=== PATIENT | male | born 1965 | race Caucasian/White ===

== ENCOUNTER 2017-06-13 02:32 | Emergency (ER) | payer SELFPAY ==
[2017-06-13 02:43] VITALS: BP 150/114; PULSE 106; TEMP 98.7; BMI 31.9
--- NOTE | 2017-06-13 02:58 | PDOC ---
History of Present Illness - General Chief Complaint: Back Pain Stated Complaint: BACK PAIN Time Seen by Provider: 06/13/17 02:58 History Source: Patient Exam Limitations: No Limitations - History of Present Illness Initial Comments: 06/13/17 03:15 This is a 51-year-old male who has a long history of chronic back pain who comes in complaining of acute exacerbation of his chronic back pain. Patient said he recently moved here from [place] and has no medication for his acute exacerbation of his chronic back pain secondary to an L4-L5 fracture Patient said he usually takes Soma and 5 mg of Percocet. But has not needed the medication use the medication since he moved several months ago Patient otherwise said the pain radiates down his right leg to approximately the knee. 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 Patient is otherwise healthy. PAST MEDICAL HISTORY: no significant history PAST SURGICAL HISTORY: no significant history FAMILY HISTORY: no pertinant history SOCIAL HISTORY: Pt lives with family and is employed. MEDICATIONS: reviewed ALLERGIES: As per nursing notes Review of Systems General: No fevers or chills, no weakness, no weight loss HEENT: No change in vision. No sore throat,. No ear pain CardioVascular: No chest pain or shortness of breath Respiratory:No cough, or wheezing. Gastrointestinal: no nausea, vomitting, diarrhea or constipation, No rectal bleeding Genitourinary: No dysuria, hematuria, or frequency Musculoskeletal: Back pain as per history of present illness Neurologic: No headache, vertigo, dizziness or loss of consciousness Psychiatric: nor depression Skin: No rashes or easy bruising Endocrine: no increased thirst or abnormal weight change Allergic: no skin or latex allergy All other systems reviewed and normal GENERAL: The patient is awake, alert, and fully oriented, in no acute distress. HEAD: Normal with no signs of trauma. EYES: Pupils equal, round and reactive to light, extraocular movements intact, sclera anicteric, conjunctiva clear. EXTREMITIES: Normal range of motion, no edema. BACK: There is tenderness and palpation over the lower lumbar spine with paraspinal spasm. Neurovascular distal is intact and straight leg raising is negative. NEUROLOGICAL: Normal speech, normal gait. grossly intact PSYCH: Normal mood, normal affect. SKIN: Warm, Dry, normal turgor, no rashes or lesions noted. Assessment and plan: This is a 51-year-old male who comes in complaining of low back pain acute exacerbation of chronic pain. Patient is driving himself home so was unable to give him any medications immediately. I offered to give patient medication immediately got some relief, drive home however there was no one so prescriptions were sent to the pharmacy. Patient received a prescription for 20 tablets of Percocet 5 mg and 20 tablets of Soma 350 mg. Past History - Past Medical History Allergies/Adverse Reactions: Allergies Allergy/AdvReac Type Severity Reaction Status Date / Time No Known Allergies Allergy Unverified 06/13/17 02:33 Home Medications: Ambulatory Orders Carisoprodol [Soma] 350 mg PO QID #28 tablet MDD 4 06/13/17 Ibuprofen 800 mg PO ONCE 06/13/17 Oxycodone HCl/Acetaminophen [Percocet 5-325 mg Tablet] 1 tab PO Q4H #20 tablet MDD 8 06/13/17 COPD: No Other medical history: HERNIATED DISC, L4 L5 FX - Suicide/Smoking/Psychosocial Hx Smoking History: Current every day smoker Number of Cigarettes Smoked Daily: 15 Information on smoking cessation initiated: Yes 'Breaking Loose' booklet given: 06/13/17 *Physical Exam - Vital Signs Last Vital Signs Temp Pulse Resp BP Pulse Ox 98.7 F 106 H 18 150/114 99 06/13/17 02:36 06/13/17 02:36 06/13/17 02:36 06/13/17 02:36 06/13/17 02:36 *DC/Admit/Observation/Transfer Diagnosis at time of Disposition: Low back pain Qualifiers: Chronicity: acute Back pain laterality: midline Sciatica presence: with sciatica Sciatica laterality: sciatica of right side Qualified Code(s): M54.41 - Lumbago with sciatica, right side - Discharge Dispostion Disposition: HOME Condition at time of disposition: Stable - Prescriptions Prescriptions: Carisoprodol [Soma] 350 mg PO QID #28 tablet MDD 4 Oxycodone HCl/Acetaminophen [Percocet 5-325 mg Tablet] 1 tab PO Q4H #20 tablet MDD 8 - Referrals Referrals: Sukhwinder Rebollar MD [Primary Care Provider] - - Patient Instructions Additional Instructions: For the pain you can continue to take the ibuprofen. In addition take Percocet one tablet every 4 hours if needed For spasm take Soma one tablet 4 times a day. Return to the emergency department immediately with ANY new, persistent or worsening symptoms. Continue any medications as previously prescribed by your physician. You should follow up with your primary doctor as soon as possible regarding today's emergency department visit. . Please make sure your doctor reviews the results of your emergency evaluation. Thank you for coming to the Emergency Department today for your care. It was a pleasure to see you today. Please note that your evaluation is INCOMPLETE until you follow-up with your doctor. - Post Discharge Activity
== END 2017-06-13 03:24 | disposition home or self-care (01) ==
LOC: SUPCPDRO 02:32 → FER 02:32
DX: M54.41 Lumbago with sciatica, right side (principal); F17.210 Nicotine dependence, cigarettes, uncomplicated
CPT/HCPCS: 99282-25

== ENCOUNTER 2017-07-30 12:38 | Emergency (ER) | payer OTHER ==
[2017-07-30 12:42] VITALS: TEMP 98.9; BMI 31.6
--- NOTE | 2017-07-30 13:08 | PDOC ---
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 No fevers chills. No URI symptoms, sore throat, cough, chest pain, shortness of breath, abdominal pain, nausea, vomiting, diarrhea. No visual or focal neurologic symptoms. Past medical history: Musculoskeletal pain of the low back, disc disease. No surgery. Hepatitis C. Social/family history: Works as a construction project administrator, heavy smoker most of his life, 2 packs per day, now down to 15 cigarettes a day and attempting to quit. No family history of coronary artery disease, but father had 2 valves replaced in his 50s. Mother with diabetes Physical exam: Alert and oriented well-developed well-nourished no acute distress cheerful and cooperative Afebrile, vital signs normal PERRLA 4 mm, fundi benign, ENT clear Neck supple without bruit mass or nodes Chest clear CV regular without murmur rub or gallop Abdomen benign Neurological intact. Including full strength bilaterally and no focal sensory or motor deficits. LS spine: Loss of normal lumbar lordosis, mild paravertebral spasm bilaterally, no deformity or tenderness of the vertebral bodies. No erythema, warmth, or other sign of inflammation. Straight leg raising negative. No neurological deficits Impression: Chronic low back strain, no subacute. Plan: Refill medications and follow-up with Back Specialist. Fully ambulatory and in no significant pain or distress upon discharge. Past History - Past Medical History Allergies/Adverse Reactions: Allergies Allergy/AdvReac Type Severity Reaction Status Date / Time No Known Allergies Allergy Verified 07/30/17 12:38 Home Medications: Ambulatory Orders Ibuprofen 800 mg PO ONCE 06/13/17 Carisoprodol [Soma] 350 mg PO QID PRN #20 tablet MDD 4 07/30/17 Oxycodone HCl/Acetaminophen [Percocet 10-325 mg Tablet] 1 each PO Q6H PRN #20 tablet MDD 4 07/30/17 COPD: No Other medical history: LOW BACK PAIN - Suicide/Smoking/Psychosocial Hx Smoking History: Current every day smoker Number of Cigarettes Smoked Daily: 15 Information on smoking cessation initiated: Yes 'Breaking Loose' booklet given: 07/30/17 Hx Alcohol Use: Yes Drug/Substance Use Hx: No Substance Use Type: Alcohol *Physical Exam - Vital Signs Last Vital Signs Temp Pulse Resp BP Pulse Ox 98.9 F 108 H 18 145/101 95 07/30/17 12:38 07/30/17 12:38 07/30/17 12:38 07/30/17 12:38 07/30/17 12:38 *DC/Admit/Observation/Transfer Diagnosis at time of Disposition: Low back pain Qualifiers: Chronicity: acute Back pain laterality: bilateral Sciatica presence: without sciatica Qualified Code(s): M54.5 - Low back pain - Discharge Dispostion Disposition: HOME Condition at time of disposition: Stable Admit: No - Prescriptions Prescriptions: Carisoprodol [Soma] 350 mg PO QID PRN #20 tablet MDD 4 PRN Reason: spasm Oxycodone HCl/Acetaminophen [Percocet 10-325 mg Tablet] 1 each PO Q6H PRN #20 tablet MDD 4 PRN Reason: Severe Pain - Referrals Referrals: Tang Dubois MD [Staff Physician] - - Patient Instructions Printed Discharge Instructions: DI for Low Back Pain - Post Discharge Activity
[2017-07-30 13:20] VITALS: BP 150/94; PULSE 98
== END 2017-07-30 13:24 | disposition home or self-care (01) ==
LOC: FER 12:38
DX: M54.5 Low back pain (principal); G89.29 Other chronic pain; B19.20 Unspecified viral hepatitis C without hepatic coma; F17.210 Nicotine dependence, cigarettes, uncomplicated
CPT/HCPCS: 99282-25

== ENCOUNTER 2017-08-18 16:00 | Emergency (ER) | payer OTHER ==
[2017-08-18 16:15] VITALS: BMI 29.0
--- NOTE | 2017-08-18 16:24 | PDOC ---
History of Present Illness - General History Source: Patient (The patient is a 52 year old male, brought on by brother, who arrives to the emergency department restless, screaming, and stating he does not know. Combined with brothers history, patient has been feeling weak and has not been eating or drinking at baseline. Patient reports he recently returned from [place] several months ago to help his brother take care of his 9 year old twin daughters. Patients history is limited due to agitation. ), Family Exam Limitations: Other <Tessa Adams - Last Filed: 08/18/17 19:22> - General History Source: Family (Family informed us later that he had history of drug addiction, arrests while in [place] and currently he prepaid $2000 at a local hotel.) Exam Limitations: Clinical Condition - History of Present Illness Timing/Duration: unsure <Olivia Parker - Last Filed: 08/20/17 14:21> - General Chief Complaint: Psychiatric Stated Complaint: I DONT KNOW WHY I AM HERE Time Seen by Provider: 08/18/17 16:23 Past History - Past Medical History COPD: No Other medical history: Chronic back pain, Hepatitis C <Tessa Adams - Last Filed: 08/18/17 19:22> - Past Medical History COPD: No - Suicide/Smoking/Psychosocial Hx Smoking History: Current every day smoker Number of Cigarettes Smoked Daily: 20 Information on smoking cessation initiated: Yes 'Breaking Loose' booklet given: 08/18/17 Hx Alcohol Use: Yes Drug/Substance Use Hx: Yes Substance Use Type: Alcohol <Olivia Parker - Last Filed: 08/20/17 14:21> - Past Medical History Allergies/Adverse Reactions: Allergies Allergy/AdvReac Type Severity Reaction Status Date / Time No Known Allergies Allergy Verified 07/30/17 12:38 Home Medications: Ambulatory Orders Ibuprofen 800 mg PO ONCE 06/13/17 Carisoprodol [Soma] 350 mg PO QID PRN #20 tablet MDD 4 07/30/17 Oxycodone HCl/Acetaminophen [Percocet 10-325 mg Tablet] 1 each PO Q6H PRN #20 tablet MDD 4 07/30/17 Review of Systems - Review of Systems Able to Perform ROS?: Yes (Limited due to pt cond. ) Constitutional: Yes: Loss of Appetite, Weakness. No: Chills, Fever Respiratory: No: Cough, Shortness of Breath Cardiac (ROS): No: Chest Pain, Irregular Heart Rate, Chest Tightness ABD/GI: No: Constipated, Diarrhea, Nausea, Vomiting : No: Dysuria, Frequency, Hematuria, Urgency Neurological: Yes: Weakness. No: Headache Psychiatric: Yes: Other All Other Systems: Reviewed and Negative <Tessa Adams - Last Filed: 08/18/17 19:22> - Review of Systems Musculoskeletal: Yes: Other (leg pains) Integumentary: Yes: Other (Skin dryness on his feet) Psychiatric: Yes: Other (Restlesness) All Other Systems: Reviewed and Negative <Olivia Parker S - Last Filed: 08/20/17 14:21> *Physical Exam - Vital Signs Last Vital Signs Temp Pulse Resp BP Pulse Ox 0/0 08/18/17 16:01 - Physical Exam General Appearance: Yes: Nourished, Disheveled, Mild Distress, Alcohol on Breath (Intoxicated.). No: Appropriately Dressed (Poor hygiene) HEENT: positive: EOMI, MAGNOLIA, Other (Dry mucous membranes.). negative: Normal Voice (Screaming.) Neck: positive: Supple. negative: Tender Respiratory/Chest: positive: Lungs Clear, Normal Breath Sounds Cardiovascular: positive: Regular Rhythm, Regular Rate, S1, S2 Gastrointestinal/Abdominal: positive: Normal Bowel Sounds, Soft. negative: Tender, Organomegaly, Guarding, Rebound Integumentary: positive: Normal Color, Dry, Warm Neurologic: positive: medical technician II-XII NML intact, Fully Oriented, Alert. negative: Normal Mood/Affect <Tessa Adams - Last Filed: 08/18/17 19:22> - Vital Signs Last Vital Signs Temp Pulse Resp BP Pulse Ox 0/0 08/18/17 16:01 - Physical Exam Musculoskeletal: positive: Other (Able to ambulate freely without difficulty mainly when advised about follow up) Neurologic: positive: Fully Oriented (agitated and refusing to undersatnding he will need follow up care in an apropriate facility), Alert <Olivia Parker S - Last Filed: 08/20/17 14:21> ED Treatment Course - LABORATORY CBC & Chemistry Diagram: 08/18/17 16:31 08/18/17 16:31 <Tessa Adams - Last Filed: 08/18/17 19:22> - LABORATORY CBC & Chemistry Diagram: 08/18/17 16:31 08/18/17 16:31 <Olivia Parker - Last Filed: 08/20/17 14:21> Medical Decision Making - Medical Decision Making 08/18/17 18:49 Patient refused to give urine. Patient given 1 bag of fluids for dehydration. After sitting to talk with the patient, he admits he is constantly angry, but "he does not know why." Patient states he does not need help from a Psychiatrist. Patient states he is feeling slightly better and would like food. Patient states he paid for $1000 hotel room, but like to stay in the hospital for 2-3 days, because he is weak and cant walk. However, patient was given a tray of food, and refused to eat it, because he states he is allergic to fish. Shortly after, patient ran outside and left his shoes behind. After going outside, patient walked back into the ER restless, screaming that he wants his fish. Patient is agitated and combative. Call was made to the mother, who reported she would not come speak to the patient until he is calm. Mother reports patient has a history of drug use and may be having a "nervous breakdown." Patient left the building ambulatory. <Tessa Adams - Last Filed: 08/18/17 19:22> - Medical Decision Making Discussed with mother and brother, advised for them to follow up with a psychiatrist and if necessary to request Emergency Services including Police Department if out of control to be taken to a facility like [facility] for full evaluation. 08/20/17 14:17 <Olivia Parker - Last Filed: 08/20/17 14:21> *DC/Admit/Observation/Transfer - Attestations Scribe Attestion: 08/18/17 16:32 Documentation prepared by Tessa Adams, acting as medical record administrator for Olivia Parker MD. <Tessa Adams - Last Filed: 08/18/17 19:22> - Discharge Dispostion Admit: No <Moucha,Remus S - Last Filed: 08/20/17 14:21> Diagnosis at time of Disposition: Dehydration syndrome, History of drug abuse - Discharge Dispostion Disposition: HOME - Patient Instructions Additional Instructions: Follow up at [facility] office phone [phone]
[2017-08-18] MEDS ORDERED: SODIUM CHLORIDE 1,000 ML IV STA (16:27)
[2017-08-18 16:34] VITALS: BP 136/89; PULSE 76; TEMP 98.3
[2017-08-18 17:14] LABS: ALK PHOS 55 U/L (32-92); ANION GAP 7 (8-16); BILIRUBIN,TOTAL 1.7 mg/dl (0.2-1.0); BLOOD UREA NITROGEN 31 mg/dl (7-18); CALCIUM 9.2 mg/dl (8.4-10.2); CHLORIDE 104 mmol/L (98-107); CO2 22 mmol/L (22-28); GLUCOSE,RANDOM 187 mg/dl (74-106); POTASSIUM 4.1 mmol/L (3.5-5.1); SGOT/AST 58 U/L (10-42); SGPT/ALT 66 U/L (10-40); SODIUM 133 mmol/L (136-145); TOT PROT 7.9 g/dl (6.4-8.3)
[2017-08-18 17:26] LABS: HEMATOCRIT 51.7 % (35.4-49); HEMOGLOBIN 18.2 GM/dl (11.7-16.9); MCH 32.4 pg (25.7-33.7); MCHC 35.2 g/dl (32.0-35.9); MEAN CELL VOLUME 91.8 fl (80-96); MEAN PLT VOLUME 9.2 fl (7.5-11.1); PLATELET COUNT 233 K/MM3 (134-434); RBC 5.63 M/mm3 (4.00-5.60); RDW 11.3 % (11.9-15.9); WHITE BLOOD COUNT 9.6 K/mm3 (4.0-10.8)
[2017-08-18 18:07] LABS: PLATELET ESTIMATE ADEQUATE
== END 2017-08-18 18:45 | disposition home or self-care (01) ==
LOC: FER 16:00
PROC: 3E0337Z Introduction of Electrolytic and Water Balance Substance into Peripheral Vein, Percutaneous Approach (ICD-10-PCS; principal; 2017-08-18)
DX: E86.0 Dehydration (principal); F19.11 Other psychoactive substance abuse, in remission; F17.210 Nicotine dependence, cigarettes, uncomplicated
CPT/HCPCS: 36415; 71045-TC; 80053; 85025; 99282-25